=== PATIENT | male | born 1975 | race Caucasian/White ===

== ENCOUNTER 2024-07-31 13:06 | Emergency (ER) | payer BC ==
[2024-07-31 13:25] VITALS: BP 126/77; PULSE 79
[2024-07-31] MEDS: Take Home: Sulfamethoxazole/Trimethoprim 800-160 MG Tab, 6 Tab Pack PO ONE (14:03)
== END 2024-07-31 13:52 | disposition home or self-care (01) ==
LOC: DL.ED 13:06
DX: L02.415 Cutaneous abscess of right lower limb (principal)
CPT/HCPCS: 10060; 99282; A9270; 99284